=== PATIENT | female | born 1975 | race Caucasian/White ===

== ENCOUNTER 2024-03-24 08:21 | Outpatient (OUT) | payer OTHER, BC, SELFPAY ==
[2024-03-24 11:29] LABS: Hematocrit 44.9 % (36.0-48.0); Hemoglobin 14.9 g/dL (12.0-16.0); Mean Corpuscular HGB Conc 33.2 g/dL (29.9-35.2); Mean Corpuscular Volume 90.5 fL (81.0-99.0); Mean Platelet Volume 10.9 fL (9.5-13.5); Platelet Count 271 10^3/uL (150-450); Red Blood Count 4.96 10^6/uL (4.20-5.40); White Blood Count 11.2 10^3/uL (4.0-11.0)
[2024-03-24 11:43] LABS: Alanine Aminotransferase 38 U/L (14-59); Albumin Level 3.6 g/dL (3.4-5.0); Alkaline Phosphatase 102 U/L (46-116); Anion Gap 8.3; Aspartate Amino Transferase 12 U/L (15-37); BUN Creatinine Ratio 11.1; Bilirubin Total 0.5 mg/dL (0.2-1.0); Calcium 8.9 mg/dL (8.5-10.1); Chloride 103 mmol/L (98-107); Chol HDL Ratio 4.2; Cholesterol 196 mg/dL (<=200); Estimated GFR (African America >60 (>=60); Estimated GFR (Non-African Ame >60 (>=60); Globulin 3.6 g/dL; Glucose 101 mg/dL (74-106); HDL Cholesterol 47 mg/dL (40-60); LDL Cholesterol Calculated 137.4 mg/dL; Potassium 4.3 mmol/L (3.5-5.1); Sodium 138 mmol/L (136-145); Total Protein 7.2 g/dL (6.4-8.2); Triglycerides 58 mg/dL (<=150); VLDL CHOLESTEROL 11.6 mg/dL
[2024-03-24 11:59] LABS: Eosinophils Absolute Manual 0.22 10^3/uL (0.00-0.70); Lymphocytes Absolute Manual 2.68 10^3/uL (1.20-3.80); Monocytes Absolute Manual 0.78 10^3/uL (0.30-0.80)
== END 2024-03-24 08:22 | disposition home or self-care (01) ==
LOC: LAB 04-05 08:21
PROVIDERS: PCP Nurse Practitioner Family; Visit Provider Nurse Practitioner Family
DX: Z13.228 Encounter for screening for other metabolic disorders (principal); Z13.220 Encounter for screening for lipoid disorders; Z13.0 Encounter for screening for diseases of the blood and blood-forming organs and certain disorders involving the immune mechanism
CPT/HCPCS: 36415; 80053; 80061; 85007; 85027

== ENCOUNTER 2025-01-17 13:19 | Outpatient (OUT) | payer OTHER, BC, SELFPAY ==
--- NOTE | 2025-01-17 13:21 | MM_ITS ---
Patient Name: JORGE TIRADO MR#: [id number] : 1975 Exam Date: 01/17/2025 Ordering Doctor: HANSEL HOUSER SHUTTLE OPERATORChidi RADIOLOGY REPORT PROCEDURE: MM TOMOSYNTHESIS SCREENING BI COMPARISON: MG MAMM BETTINA DIAG FU, 03/08/2019. MG MAMM RT DIAG W CAD, 09/01/2018. MG MAMM SCREEN BETTINA W CAD, 02/03/2018. INDICATIONS: Screening Calculator Name NCI Breast Cancer Risk Assessment Tool 5 Year Breast Cancer Risk 1.30% Lifetime Breast Cancer Risk 12.30% Personal Breast Cancer No Personal Ovarian Cancer No Treatments None Family Cancers Grandmother-paternal with breast cancer at age ~70; Uncle-paternal with non hodgkins lymphoma cancer at age 35. LOCATION: [facility] BREAST COMPOSITION: There are scattered areas of fibroglandular density. FINDINGS: DIAGNOSTIC CATEGORY 1--NEGATIVE. RIGHT BREAST: No significant suspicious finding. LEFT BREAST: No significant suspicious finding. RECOMMENDATIONS: ROUTINE MAMMOGRAM AND CLINICAL EVALUATION IN 12 MONTHS. PLEASE NOTE: A NORMAL MAMMOGRAM DOES NOT EXCLUDE THE POSSIBILITY OF BREAST CANCER. A CLINICALLY SUSPICIOUS PALPABLE LUMP SHOULD BE BIOPSIED. Dictated by: Asad Magaña DO on 01/17/2025 at 16:42 Approved by: Asad Magaña DO on 01/17/2025 at 16:43
== END 2025-01-17 13:20 | disposition home or self-care (01) ==
LOC: MAMMO 13:19
PROVIDERS: PCP Nurse Practitioner Family; Visit Provider Nurse Practitioner Family
DX: Z12.31 Encounter for screening mammogram for malignant neoplasm of breast (principal); Z80.3 Family history of malignant neoplasm of breast; Z80.7 Family history of other malignant neoplasms of lymphoid, hematopoietic and related tissues
CPT/HCPCS: 77063; 77067